=== PATIENT | male | born 1985 | race Caucasian/White ===

== ENCOUNTER 2017-04-02 22:37 | Emergency (ER) | payer MEDICAID ==
[~2017-04-02] VITALS: Ht 180.3 cm; Wt 65.0 kg
[~2017-04-02 22:37] MED LIST: CEPH500C3 PO
[2017-04-02 22:39] VITALS: BP 154/85; PULSE 70; RESP 16; TEMP 97.8; O2SAT 98
--- NOTE | 2017-04-02 22:54 | PD ---
HPI Chief Complaint: Foreign Body Time Seen by Provider: 22:54 Travel History International Travel<30 days: No Contact w/Intl Traveler<30days: No Traveled to known affect area: No History of Present Illness HPI 31-year-old male came to the emergency room with history of speck of metal as foreign body into his left eye. Patient says that he was in the garage and was trying to grind metal. He was not wearing any safety goggles. Patient does not wear contacts. This happened a little before coming to the emergency room. He has a foreign body sensation in his left eye. Patient tried to wash his eyes at home but did not help. His last tetanus shot was about 2-3 years ago. He is otherwise a relatively healthy person. [facility] Past Medical History Narrative Medical List of his past medical, surgical, social and family history reviewed from the nursing note Diabetes: No Diminished Hearing: No Herniated Disk: Yes Immune Disorder: No Past Surgical History Arteriovenous Shunt: Yes Social History Alcohol Use: No Tobacco Use: Yes (1 PPD) Substance Use: No (WEED) Allergies-Medications (Allergen,Severity, Reaction): Coded Allergies: No Known Allergies (Verified Allergy, Unknown, 04/02/17) Comments No known drug allergies. Reported Meds & Prescriptions Reported Meds & Active Scripts Active Erythromycin Opth Oint 5 Mg/Gm Oint 1 Applic LEFT EYE BID Keflex (Cephalexin Monohydrate) 500 Mg Cap 500 Mg PO BID Narrative Medication List of his home medications reviewed from the nursing note. Review of Systems Except as stated in HPI: all other systems reviewed are Neg Eyes: Positive: Foreign Body Sensation Physical Exam Narrative GENERAL: Awake, alert, moderate distress secondary SKIN: Focused skin assessment warm/dry. HEAD: Atraumatic. Normocephalic. EYES: Pupils equal and round. No scleral icterus. No injection or drainage. Left cornea small foreign body at 5 o'clock position close to the periphery. ENT: No nasal bleeding or discharge. Mucous membranes pink and moist. NECK: Trachea midline. No JVD. CARDIOVASCULAR: Regular rate and rhythm. No murmur appreciated. RESPIRATORY: No accessory muscle use. Clear to auscultation. Breath sounds equal bilaterally. GASTROINTESTINAL: Abdomen soft, non-tender, nondistended. Hepatic and splenic margins not palpable. MUSCULOSKELETAL: No obvious deformities. No clubbing. No cyanosis. No edema. NEUROLOGICAL: Awake and alert. No obvious cranial nerve deficits. Motor grossly within normal limits. Normal speech. PSYCHIATRIC: Appropriate mood and affect; insight and judgment normal. Data Data Last Documented VS Vital Signs Date Time Temp Pulse Resp B/P (MAP) Pulse Ox O2 Delivery O2 Flow Rate FiO2 04/02/17 23:47 04/02/17 22:39 97.8 70 16 98 Room Air Orders Orders Tetracaine 0.5% Opht Soln (Pontocaine 0. (04/02/17 23:00) Erythromycin 0.5% Opth Oint (Ilotycin 0. (04/02/17 23:30) Ed Discharge Order (04/02/17 23:26) [facility] Medical Decision Making Medical Screen Exam Complete: Yes Emergency Medical Condition: Yes Medical Record Reviewed: Yes Differential Diagnosis Foreign body in cornea Narrative Course 11:29 PM still tetracaine eyedrop into the left eye. Foreign body was gently extracted. Please refer to my procedure note. Patient will get an application of erythromycin ointment and discharge home to follow-up with ophthalmology. Patient tolerated the procedure well. Procedures Procedure Narrative Foreign body extraction from cornea: 2 drops of 0.5% tetracaine was instilled into the left eye. Needle used to scrape the tiny speck of the metallic foreign body from the cornea. The sharp edge of the beveled tip was used that was attached to a 3 cc syringe. Almost all the foreign body was removed. The process caused some corneal abrasion. Patient tolerated the procedure well. EKG Prior to Arrival: No Diagnosis Primary Impression: Corneal foreign body Qualified Codes: T15.02XA - Foreign body in cornea, left eye, initial encounter Referrals: Lorrie Irene MD 3 days Additional Instructions: Please return to the ER if condition worsens or any other new concerns. Otherwise follow-up with the floriculturist was name and number been given to you first thing Wednesday morning. Apply the antibiotic ointment as per the prescription direction. Med/Other Pt SpecificInfo: Prescription(s) given Scripts Erythromycin Opth Oint (Erythromycin Opth Oint) 5 Mg/Gm Oint 1 APPLIC LEFT EYE BID for Infection, #1 TUBE 0 Refills Prov: Jake Mayers MD 04/02/17 Disposition: 01 DISCHARGE HOME Condition: Stable Jake Mayers MD Apr 02, 2017 22:54
[2017-04-02] MEDS ORDERED: TETRACAINE 0.5% OPTH SOLN 2 ML BTL LEFT EYE ONE (23:00)
[2017-04-02] MEDS ORDERED: ERYTHROMYCIN 0.5% OPTH OINT 3.5 GM TUBO LEFT EYE ONE (23:30)
[2017-04-02] MEDS ORDERED: ERYTOIN10 LEFT EYE (23:32)
== END 2017-04-02 23:48 | disposition home or self-care (01) ==
LOC: NEPD 22:37
DX: T15.02XA Foreign body in cornea, left eye, initial encounter (principal); F17.210 Nicotine dependence, cigarettes, uncomplicated; W31.1XXA Contact with metalworking machines, initial encounter; Y92.015 Private garage of single-family (private) house as the place of occurrence of the external cause
CPT/HCPCS: 65220

== ENCOUNTER 2017-05-03 18:09 | Emergency (ER) | payer MEDICAID ==
[~2017-05-03 18:09] MED LIST changes: +ERYTOIN10 LEFT EYE
[2017-05-03 18:34] VITALS: BP 126/76; PULSE 63; RESP 15; TEMP 98.2; O2SAT 98
[2017-05-03] MEDS ORDERED: ERYTOIN10 LEFT EYE (20:22)
--- NOTE | 2017-05-03 20:22 | PD ---
HPI Chief Complaint: Eye Problems/Injury Time Seen by Provider: 20:02 Travel History International Travel<30 days: No Contact w/Intl Traveler<30days: No Traveled to known affect area: No History of Present Illness HPI 32-year-old male here with a foreign body sensation in the left eye since this morning. 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 He cannot recall specific injury. Denies visual changes. Reports mild left eye discomfort. Symptoms severity is mild. No aggravating or alleviating factors. PFSH Past Medical History Diabetes: No Diminished Hearing: No Herniated Disk: Yes Immune Disorder: No Past Surgical History Arteriovenous Shunt: Yes Social History Alcohol Use: No Tobacco Use: Yes (1 PPD) Substance Use: No (WEED) Allergies-Medications (Allergen,Severity, Reaction): Coded Allergies: No Known Allergies (Verified Allergy, Unknown, 04/02/17) Reported Meds & Prescriptions Reported Meds & Active Scripts Active Erythromycin Opth Oint 5 Mg/Gm Oint 1 Applic LEFT EYE BID Keflex (Cephalexin Monohydrate) 500 Mg Cap 500 Mg PO BID Review of Systems Except as stated in HPI: all other systems reviewed are Neg General / Constitutional: No: Fever Physical Exam Narrative GENERAL: Alert and well-appearing 32-year-old male SKIN: Warm and dry. HEAD: Normocephalic. EYE: Left eye mildly injected. Pupils equal, round, reactive to light. EOMs intact. Corneas clear. No hyphema. Small metal yan superficially embedded in the cornea located at 10:00 over the iris. No fluorescein dye uptake. Visual acuity L: 20/20 NECK: Supple Data Data Last Documented VS Vital Signs Date Time Temp Pulse Resp B/P (MAP) Pulse Ox O2 Delivery O2 Flow Rate FiO2 05/03/17 18:34 98.2 63 15 126/76 (93) 98 MDM Medical Decision Making Medical Screen Exam Complete: Yes Emergency Medical Condition: Yes Differential Diagnosis Corneal foreign body, corneal abrasion, corneal ulcer Narrative Course 32-year-old male here with a superficial corneal foreign body in left eye. Proparacaine eyedrops applied to left eye. Foreign body was easily removed with a cotton Q-tip. Erythromycin ophthalmic ointment was applied. Patient is to follow-up with ophthalmology for recheck Diagnosis Primary Impression: Corneal foreign body Qualified Codes: T15.02XA - Foreign body in cornea, left eye, initial encounter Referrals: Scientific Artist Additional Instructions: Antibiotic ointment as directed. Follow-up with the railroad operating engineer. Return if he developed new or worsening symptoms Scripts Erythromycin Opth Oint (Erythromycin Opth Oint) 5 Mg/Gm Oint 1 APPLIC LEFT EYE QID for Infection, #1 TUBE 0 Refills Prov: Valentine Woodward 05/03/17 Disposition: DISCHARGE HOME Condition: Stable Valentine Woodward May 03, 2017 20:22
[2017-05-03] MEDS ORDERED: ERYTHROMYCIN 0.5% OPTH OINT 3.5 GM TUBO LEFT EYE ONE (20:30)
== END 2017-05-03 20:38 | disposition home or self-care (01) ==
LOC: NEPK 18:09
DX: T15.02XA Foreign body in cornea, left eye, initial encounter (principal); W45.8XXA Other foreign body or object entering through skin, initial encounter; Y92.69 Other specified industrial and construction area as the place of occurrence of the external cause; Z72.0 Tobacco use
CPT/HCPCS: 99283